=== PATIENT | male | born 1985 | race Caucasian/White ===

== ENCOUNTER 2021-06-05 15:15 | Inpatient (IN) | payer BC ==
[~2021-06-05] VITALS: Ht 177.8 cm; Wt 83.9 kg
[2021-06-05] MEDS ORDERED: DEXAMETHASONE SOD PHOSPHATE 4 MG INJ IV ONE (15:45)
[2021-06-05] MEDS ORDERED: IV NORMAL SALINE 1000 ML BAG IV ONE (15:45)
[2021-06-05] MEDS ORDERED: DEXAMETHASONE SOD PHOSPHATE 4 MG INJ ONE (15:49)
[2021-06-05] MEDS ORDERED: ALBUTEROL SULFATE 8 GM HFA.AER.AD IH PRN (16:00)
[2021-06-05 16:21] LABS: HEMATOCRIT 38.9 % (36.7-47.1); MEAN CORPUSCULAR HEMOGLOBIN 30.8 uug (23.8-33.4); MEAN CORPUSCULAR VOLUME 89.5 fL (73.0-96.2); PLATELET COUNT (AUTO) 148 K/uL (152-348)
[2021-06-05 16:27] LABS: CREATININE 1.2 mg/dL (0.6-1.3); POTASSIUM 3.5 mmol/L (3.5-5.1)
[2021-06-05 16:37] LABS: *BILIRUBIN,URIN NEGATIVE (NEGATIVE); *BLOOD, URINE NEGATIVE (NEGATIVE); *CLARITY,URINE CLEAR (CLEAR); *COLOR,URINE YELLOW (YELLOW); *KETONES,URINE NEGATIVE (NEGATIVE); LEUKOCYTE ESTERASE ,URINE NEGATIVE (NEGATIVE); NITRITE, URINE NEGATIVE (NEGATIVE); PH,URINE 6.5 (5.0-8.0); UGLUCOSE NEGATIVE (NEGATIVE)
[2021-06-05 16:42] LABS: BACTERIA,URINE NONE SEEN /HPF (NONE SEEN); RBC,URINE 0-3 /HPF (0-3); SQUAMOUS EPITHELIAL CELL,UR NONE SEEN /HPF (NONE SEEN); URINE AMORPHOUS URATE FEW /HPF
[2021-06-05 17:06] LABS: BILIRUBIN,TOTAL 0.4 mg/dL (0.2-1.0); TOTAL PROTEIN, SERUM 6.6 g/dL (6.4-8.2)
[2021-06-05] MEDS ORDERED: SWABABLE VALVE TRANSFER SET EA MC ONE (17:52)
[2021-06-05] MEDS ORDERED: IOHEXOL 350 100 ML INFUS..BTL ONE (17:53)
[2021-06-05] MEDS ORDERED: IV NORMAL SALINE 250 ML IV ONE (17:53)
[2021-06-05] MEDS ORDERED: HYDROCODONE/APAP 5-325MG TABLET PO PRN (20:15)
[2021-06-05] MEDS ORDERED: ONDANSETRON 4 MG/2 ML VIAL IV PRN (20:15)
[2021-06-05] MEDS ORDERED: ACETAMINOPHEN 325 MG TABLET PO PRN (20:15)
[2021-06-05] MEDS ORDERED: Z GUARD REMEDY PASTE 57 GM TUBE TOP PRN (20:15)
[2021-06-05] MEDS ORDERED: MAGNESIUM HYDROXIDE 30 ML LIQUID UDC PO PRN (20:15)
[2021-06-05 20:30] VITALS: BP 117/71
[2021-06-05] MEDS ORDERED: TEMAZEPAM 7.5 MG CAPSULE PO PRN (20:30)
[2021-06-05] MEDS ORDERED: CEFTRIAXONE 1 G VIAL ONE (20:57)
[2021-06-05] MEDS ORDERED: AZITHROMYCIN 500MG/ D5W 250ML IVPB **ER PYXIS ONLY IV ONE (20:58)
[2021-06-05] MEDS ORDERED: REMDESIVIR (CHARGED) 200 MG in IV NORMAL SALINE 210 ML IV ONE (21:00)
[2021-06-05] MEDS: BENZONATATE 100 MG CAPSULE PO SCH (21:05)
[2021-06-05] MEDS: ENOXAPARIN SODIUM 40 MG/0.4 ML DISP.SYRIN SQ SCH (21:05)
[2021-06-05] MEDS: IV 1/2NS 1000 ML 1,000 ML IV PRN (21:20)
[2021-06-05] MEDS: AZITHROMYCIN IV 500 MG in IV DEXTROSE 5% 250 ML IV SCH (21:21)
[2021-06-05] MEDS: CEFTRIAXONE 1 G in IV DEXTROSE 5% 50 ML IV SCH (21:21)
[2021-06-05] MEDS: methylPREDNISolone SOD SUCC 125 MG/2 ML VIAL IV SCH (22:22)
[2021-06-06] VITALS (12 sets, daily range): BP systolic 111–125; BP diastolic 66–77
[2021-06-06] MEDS: methylPREDNISolone SOD SUCC 125 MG/2 ML VIAL IV SCH ×3 (06:30→21:02)
[2021-06-06] MEDS: BENZONATATE 100 MG CAPSULE PO SCH ×3 (06:30→21:01)
[2021-06-06] MEDS: PANTOPRAZOLE SODIUM 40 MG TABLET.DR PO SCH (06:30)
[2021-06-06 06:36] LABS: HEMATOCRIT 41.4 % (36.7-47.1); MEAN CORPUSCULAR HEMOGLOBIN 30.4 uug (23.8-33.4); MEAN CORPUSCULAR VOLUME 90.3 fL (73.0-96.2); PLATELET COUNT (AUTO) 176 K/uL (152-348)
[2021-06-06 07:24] LABS: CREATININE 1.1 mg/dL (0.6-1.3); MAGNESIUM 2.5 mg/dL (1.8-2.4); PHOSPHOROUS 3.6 mg/dL (2.5-4.9); POTASSIUM 3.8 mmol/L (3.5-5.1)
[2021-06-06] MEDS ORDERED: DEXAMETHASONE SOD PHOSPHATE 4 MG INJ IV SCH (09:00)
[2021-06-06] MEDS ORDERED: REMDESIVIR (CHARGED) 200 MG in IV NORMAL SALINE 210 ML IV ONE (10:00)
[2021-06-06] MEDS ORDERED: ALPRAZOLAM 0.25 MG TABLET PO PRN (10:45)
[2021-06-06] MEDS ORDERED: ACETAMINOPHEN 325 MG TABLET PO ONE ×2 (11:30→12:30)
[2021-06-06] MEDS ORDERED: diphenhydrAMINE 50 MG/1 ML VIAL IV ONE ×2 (11:30→12:30)
[2021-06-06] MEDS ORDERED: methylPREDNISolone SOD SUCC 40 MG/ML VIAL IV ONE (11:30)
[2021-06-06] MEDS ORDERED: TOCILIZUMAB 600 MG in IV NORMAL SALINE 70 ML IV ONE (13:00)
[2021-06-06] MEDS: IV 1/2NS 1000 ML 1,000 ML IV PRN (19:00)
[2021-06-06] MEDS: AZITHROMYCIN IV 500 MG in IV DEXTROSE 5% 250 ML IV SCH (20:21)
[2021-06-06] MEDS: CEFTRIAXONE 1 G in IV DEXTROSE 5% 50 ML IV SCH (20:22)
[2021-06-06] MEDS: ENOXAPARIN SODIUM 40 MG/0.4 ML DISP.SYRIN SQ SCH (21:27)
[2021-06-07] VITALS (8 sets, daily range): BP systolic 110–131; BP diastolic 67–81
[2021-06-07 06:22] LABS: ABG BASE EXCESS 1.1 mmol/L; ABG PCO2 37.3 mmHg (35.0-45.0); ABG PH 7.444 (7.350-7.450); ABG PO2 67.6 mmHg (75.0-100.0); ABG SITE LEFT BRACHIAL; ABG TOTAL HEMOGLOBIN 13.4 G/dL (13.5-18.0); COHb 0.6 % (0.5-1.5); MetHb 0.2 % (0.0-1.5); O2Hb 92.7 % (94.0-97.0); VENT MODE Nasal Cannula
[2021-06-07] MEDS: BENZONATATE 100 MG CAPSULE PO SCH ×3 (06:41→21:50)
[2021-06-07] MEDS: PANTOPRAZOLE SODIUM 40 MG TABLET.DR PO SCH (06:41)
[2021-06-07 06:46] LABS: HEMATOCRIT 40.7 % (36.7-47.1); MEAN CORPUSCULAR HEMOGLOBIN 29.8 uug (23.8-33.4); MEAN CORPUSCULAR VOLUME 91.3 fL (73.0-96.2); PLATELET COUNT (AUTO) 207 K/uL (152-348)
[2021-06-07] MEDS: methylPREDNISolone SOD SUCC 125 MG/2 ML VIAL IV SCH ×2 (06:49→16:21)
[2021-06-07 07:21] LABS: BILIRUBIN,DIRECT 0.1 mg/dL (0.0-0.2); BILIRUBIN,TOTAL 0.5 mg/dL (0.2-1.0); CREATININE 0.8 mg/dL (0.6-1.3); MAGNESIUM 2.3 mg/dL (1.8-2.4); PHOSPHOROUS 4.1 mg/dL (2.5-4.9); POTASSIUM 3.5 mmol/L (3.5-5.1); TOTAL PROTEIN, SERUM 6.2 g/dL (6.4-8.2)
[2021-06-07] MEDS: REMDESIVIR (CHARGED) 100 MG in IV NORMAL SALINE 230 ML IV SCH (09:47)
[2021-06-07] MEDS ORDERED: ALPRAZOLAM 0.25 MG TABLET PO PRN (13:00)
[2021-06-07] MEDS: IV 1/2NS 1000 ML 1,000 ML IV PRN (13:52)
[2021-06-07] MEDS: AZITHROMYCIN IV 500 MG in IV DEXTROSE 5% 250 ML IV SCH (20:45)
[2021-06-07] MEDS: ENOXAPARIN SODIUM 40 MG/0.4 ML DISP.SYRIN SQ SCH (20:46)
[2021-06-07] MEDS: CEFTRIAXONE 1 G in IV DEXTROSE 5% 50 ML IV SCH (21:34)
[2021-06-07] MEDS: ZOLPIDEM 5 MG TABLET PO PRN (22:26)
[2021-06-08] VITALS (8 sets, daily range): BP systolic 107–128; BP diastolic 61–76
[2021-06-08] MEDS: IV 1/2NS 1000 ML 1,000 ML IV PRN ×2 (02:35→15:40)
[2021-06-08] MEDS: BENZONATATE 100 MG CAPSULE PO SCH ×3 (05:50→21:22)
[2021-06-08] MEDS: PANTOPRAZOLE SODIUM 40 MG TABLET.DR PO SCH (06:00)
[2021-06-08 06:32] LABS: HEMATOCRIT 38.8 % (36.7-47.1); MEAN CORPUSCULAR HEMOGLOBIN 30.7 uug (23.8-33.4); PLATELET COUNT (AUTO) 274 K/uL (152-348)
[2021-06-08 07:35] LABS: BILIRUBIN,DIRECT 0.1 mg/dL (0.0-0.2); BILIRUBIN,TOTAL 0.6 mg/dL (0.2-1.0); CREATININE 1.1 mg/dL (0.6-1.3); POTASSIUM 3.8 mmol/L (3.5-5.1); TOTAL PROTEIN, SERUM 5.8 g/dL (6.4-8.2)
[2021-06-08] MEDS: methylPREDNISolone SOD SUCC 125 MG/2 ML VIAL IV SCH ×2 (08:33→16:27)
[2021-06-08] MEDS: REMDESIVIR (CHARGED) 100 MG in IV NORMAL SALINE 230 ML IV SCH (10:47)
[2021-06-08] MEDS: ENOXAPARIN SODIUM 40 MG/0.4 ML DISP.SYRIN SQ SCH (20:16)
[2021-06-08] MEDS: CEFTRIAXONE 1 G in IV DEXTROSE 5% 50 ML IV SCH (20:29)
[2021-06-08] MEDS: ZOLPIDEM 5 MG TABLET PO PRN (21:22)
[2021-06-08] MEDS: AZITHROMYCIN IV 500 MG in IV DEXTROSE 5% 250 ML IV SCH (21:22)
[2021-06-09] VITALS: BP 115/67
[2021-06-09 04:00] VITALS: BP 115/75
[2021-06-09] MEDS: BENZONATATE 100 MG CAPSULE PO SCH ×3 (06:20→21:24)
[2021-06-09] MEDS: PANTOPRAZOLE SODIUM 40 MG TABLET.DR PO SCH (06:21)
[2021-06-09 06:35] LABS: HEMATOCRIT 40.2 % (36.7-47.1); MEAN CORPUSCULAR HEMOGLOBIN 30.2 uug (23.8-33.4); MEAN CORPUSCULAR VOLUME 89.9 fL (73.0-96.2); PLATELET COUNT (AUTO) 292 K/uL (152-348)
[2021-06-09] MEDS: IV 1/2NS 1000 ML 1,000 ML IV PRN ×2 (06:40→22:41)
[2021-06-09 07:09] LABS: BILIRUBIN,DIRECT 0.1 mg/dL (0.0-0.2); BILIRUBIN,TOTAL 0.4 mg/dL (0.2-1.0); CREATININE 0.8 mg/dL (0.6-1.3); POTASSIUM 3.8 mmol/L (3.5-5.1); TOTAL PROTEIN, SERUM 5.6 g/dL (6.4-8.2)
[2021-06-09 08:06] LABS: CRYPTOCOCCUS AB, SERUM Negative (Negative)
[2021-06-09] MEDS: methylPREDNISolone SOD SUCC 125 MG/2 ML VIAL IV SCH ×2 (08:38→20:31)
[2021-06-09] MEDS: REMDESIVIR (CHARGED) 100 MG in IV NORMAL SALINE 230 ML IV SCH (11:23)
[2021-06-09 12:00] VITALS: BP_SYST 120; BP_SYST 128; BP_DIAS 75; BP_DIAS 88
[2021-06-09 16:30] VITALS: BP 110/76
[2021-06-09] MEDS: CEFTRIAXONE 1 G in IV DEXTROSE 5% 50 ML IV SCH (20:30)
[2021-06-09 20:35] VITALS: BP 114/84
[2021-06-09] MEDS: ENOXAPARIN SODIUM 40 MG/0.4 ML DISP.SYRIN SQ SCH (21:06)
[2021-06-09] MEDS: AZITHROMYCIN IV 500 MG in IV DEXTROSE 5% 250 ML IV SCH (21:24)
[2021-06-09] MEDS: ZOLPIDEM 5 MG TABLET PO PRN (22:40)
[2021-06-10 00:22] VITALS: BP 119/63
[2021-06-10 04:35] VITALS: BP 109/63
[2021-06-10] MEDS: BENZONATATE 100 MG CAPSULE PO SCH ×3 (06:03→22:06)
[2021-06-10] MEDS: PANTOPRAZOLE SODIUM 40 MG TABLET.DR PO SCH (06:03)
[2021-06-10 06:40] LABS: HEMATOCRIT 40.8 % (36.7-47.1); MEAN CORPUSCULAR HEMOGLOBIN 30.8 uug (23.8-33.4); MEAN CORPUSCULAR VOLUME 90.2 fL (73.0-96.2); PLATELET COUNT (AUTO) 320 K/uL (152-348)
[2021-06-10 07:36] LABS: BILIRUBIN,DIRECT 0.1 mg/dL (0.0-0.2); BILIRUBIN,TOTAL 0.4 mg/dL (0.2-1.0); POTASSIUM 4.3 mmol/L (3.5-5.1); TOTAL PROTEIN, SERUM 5.6 g/dL (6.4-8.2)
[2021-06-10] MEDS: REMDESIVIR (CHARGED) 100 MG in IV NORMAL SALINE 230 ML IV SCH (10:14)
[2021-06-10] MEDS: methylPREDNISolone SOD SUCC 125 MG/2 ML VIAL IV SCH ×2 (10:15→20:45)
[2021-06-10] MEDS: ENSURE ENLIVE (VAN) 240 ML LIQUID PO SCH (10:15)
[2021-06-10 12:00] VITALS: BP 116/56
[2021-06-10] MEDS: IV 1/2NS 1000 ML 1,000 ML IV PRN (14:06)
[2021-06-10 16:08] VITALS: BP 107/63
[2021-06-10] MEDS: ALPRAZOLAM 0.25 MG TABLET PO PRN (18:15)
[2021-06-10 19:06] LABS: COCCIDIOIDES CF SERUM Negative (Neg:<1:2)
[2021-06-10] MEDS ORDERED: CALCIUM CARBONATE 500 MG TAB.CHEW PO PRN (19:45)
[2021-06-10 20:15] VITALS: BP 100/67
[2021-06-10] MEDS: CEFTRIAXONE 1 G in IV DEXTROSE 5% 50 ML IV SCH (20:45)
[2021-06-10] MEDS: ENOXAPARIN SODIUM 40 MG/0.4 ML DISP.SYRIN SQ SCH (20:47)
[2021-06-10] MEDS: ZOLPIDEM 5 MG TABLET PO PRN (22:07)
[2021-06-11 00:03] VITALS: BP 105/52
[2021-06-11 04:20] VITALS: BP 91/43
[2021-06-11] MEDS: BENZONATATE 100 MG CAPSULE PO SCH ×3 (06:12→22:24)
[2021-06-11] MEDS: PANTOPRAZOLE SODIUM 40 MG TABLET.DR PO SCH (06:12)
[2021-06-11] MEDS: methylPREDNISolone SOD SUCC 125 MG/2 ML VIAL IV SCH ×2 (09:03→20:20)
[2021-06-11] MEDS: ENSURE ENLIVE (VAN) 240 ML LIQUID PO SCH (09:04)
[2021-06-11 12:00] VITALS: BP 109/62
[2021-06-11 16:00] VITALS: BP 105/67
[2021-06-11 20:12] VITALS: BP 100/63
[2021-06-11] MEDS: ALPRAZOLAM 0.25 MG TABLET PO PRN (20:20)
[2021-06-11] MEDS: ENOXAPARIN SODIUM 40 MG/0.4 ML DISP.SYRIN SQ SCH (20:24)
[2021-06-11] MEDS: ZOLPIDEM 5 MG TABLET PO PRN (20:48)
[2021-06-12 00:06] VITALS: BP 101/57
[2021-06-12 04:12] VITALS: BP 105/54
[2021-06-12] MEDS: PANTOPRAZOLE SODIUM 40 MG TABLET.DR PO SCH (06:00)
[2021-06-12] MEDS: BENZONATATE 100 MG CAPSULE PO SCH ×2 (06:00→14:26)
[2021-06-12] MEDS: methylPREDNISolone SOD SUCC 125 MG/2 ML VIAL IV SCH (08:53)
[2021-06-12] MEDS: ENSURE ENLIVE (VAN) 240 ML LIQUID PO SCH (09:48)
[2021-06-12 11:35] VITALS: BP 104/66
[2021-06-12] MEDS ORDERED: PRED50TA PO (14:19)
[2021-06-12] MEDS ORDERED: PRED20TA PO ×3 (14:19→23:19)
[2021-06-12] MEDS ORDERED: BENZ-38 PO (14:19)
[2021-06-12] MEDS ORDERED: ASPI-612 PO ×2 (14:19→23:19)
[2021-06-12] MEDS ORDERED: PRED2.5T PO (23:19)
== END 2021-06-12 16:35 | disposition home or self-care (01) | DRG 177 ==
LOC: ER 15:17 → TELE3 20:03
PROVIDERS: ADMIT Nurse Practitioner Family; ATTEND Nurse Practitioner Family
PROC: XW033E5 Introduction of Remdesivir Anti-infective into Peripheral Vein, Percutaneous Approach, New Technology Group 5 (ICD-10-PCS; principal; 2021-06-05)
PROC: XW033H5 Introduction of Tocilizumab into Peripheral Vein, Percutaneous Approach, New Technology Group 5 (ICD-10-PCS; 2021-06-06)
DX: U07.1 COVID-19 (principal); J12.82 Pneumonia due to coronavirus disease 2019; J96.01 Acute respiratory failure with hypoxia; E44.0 Moderate protein-calorie malnutrition; D69.6 Thrombocytopenia, unspecified; K76.0 Fatty (change of) liver, not elsewhere classified; Z87.09 Personal history of other diseases of the respiratory system; F06.4 Anxiety disorder due to known physiological condition
CPT/HCPCS: 36415; 36600; 70030-TC; 71045; 71275; 83605; 83615; 83735; 84100; 85025; 85610; 85730; 86140; 86480; 87040; 87086; 87328; 93005; A4663; G0378; J0456; J0696; J1100; J1200; J1650; J2930; J3262; J3490; J3535; J7030; J7040; J7050; J7060; Q9967; U0003